=== PATIENT | female | born 1980 | race Caucasian/White ===

== ENCOUNTER 2019-10-08 11:57 | Inpatient (IN) | payer OTHER ==
[~2019-10-08] VITALS: Ht 165.1 cm; Wt 83.2 kg
[2019-10-08 14:41] VITALS: BP 110/71
[2019-10-08] MEDS ORDERED: OXYTOCIN 30U/ 0.9% NaCL 500ML 500 ML IV ONE (14:45)
[2019-10-08] MEDS ORDERED: LACTATED RINGERS 1,000 ML IV SCH ×2 (14:45→19:08)
[2019-10-08] MEDS ORDERED: FENTANYL PF 100 MCG/2ML IV PRN (15:00)
[2019-10-08] MEDS ORDERED: TERBUTALINE 1 MG/ML, 1ML SQ PRN (15:00)
[2019-10-08] MEDS ORDERED: CALCIUM CARBONATE 500 MG TAB.CHEW PO PRN (15:00)
[2019-10-08] MEDS ORDERED: ONDANSETRON 2MG/ML, 2ML IVPush PRN ×2 (15:00→19:30)
[2019-10-08] MEDS ORDERED: TERBUTALINE 1 MG/ML, 1ML IVPush PRN (15:00)
[2019-10-08] MEDS ORDERED: FENTANYL PF 100 MCG/2ML IVPush PRN (15:00)
[2019-10-08 15:22] LABS: BASOPHILS # (AUTO) 0.05 x10^3/uL (0-0.1); BASOPHILS % (AUTO) 0 % (0-1); EOSINOPHILS # (AUTO) 0.01 x10^3/uL (0-0.4); EOSINOPHILS % (AUTO) 0 % (1-7); LYMPHOCYTES % (AUTO) 14 % (22-44); MD NO; MEAN CORPUSCULAR HEMOGLOBIN 28.2 pg (27.0-34.8); MEAN CORPUSCULAR HGB CONC 32.9 g/dL (32.4-35.8); MEAN CORPUSCULAR VOLUME 85.6 fL (80-100); MEAN PLATELET VOLUME 9.6 fL (7.4-10.4); MONOCYTES # (AUTO) 0.53 x10^3/uL (0.2-0.8); MONOCYTES % (AUTO) 5 % (2-9); NEUTROPHILS # (AUTO) 8.79 x10^3/uL (1.8-6.8); NEUTROPHILS % (AUTO) 81 % (42-75); PLATELET COUNT 233 x10^3/uL (130-400); RED BLOOD COUNT 4.23 x10^6/uL (3.82-5.3); RED CELL DISTRIBUTION WIDTH 12.7 % (9.6-15.2)
[2019-10-08] MEDS ORDERED: FENTANYL/BUPIV./NS/PF 250 ML EPIDCONT ONE (18:50)
[2019-10-08] MEDS ORDERED: BUPIVACAINE 0.25% ONE (18:50)
[2019-10-08] MEDS ORDERED: LIDOCAINE 1%, 20ML ONE (19:06)
[2019-10-08] MEDS ORDERED: NEWBORN KIT ONE (19:06)
[2019-10-08] MEDS ORDERED: OXYTOCIN 30U/ 0.9% NaCL 500ML 500 ML ONE ×2 (19:06→23:39)
[2019-10-08] MEDS ORDERED: MISOPROSTOL 200 MCG TABLET ONE (19:06)
[2019-10-08] MEDS ORDERED: FENTANYL/BUPIV./NS/PF 250 ML EPIDCONT SCH (19:08)
[2019-10-08] MEDS ORDERED: LACTATED RINGERS 1,000 ML IVBOLUS PRN (19:30)
[2019-10-08] MEDS ORDERED: EPHEDRINE 50 MG/ML, 1ML IVPush PRN (19:30)
[2019-10-08] MEDS ORDERED: NALOXONE 0.4 MG/ML, 1ML IVPush PRN (19:30)
[2019-10-08] MEDS ORDERED: DIPHENHYDRAMINE 50 MG/ML, 1ML IVPush PRN (19:30)
[2019-10-08] MEDS ORDERED: OXYTOCIN 30U/ 0.9% NaCL 500ML 500 ML IV PRN (19:52)
[2019-10-08 19:58] VITALS: BP 107/59
[2019-10-08] MEDS ORDERED: KETOROLAC 30 MG/1 ML ONE (23:18)
[2019-10-08] MEDS ORDERED: KETOROLAC 30 MG/1 ML IM SCH (23:20)
[2019-10-08] MEDS ORDERED: MISOPROSTOL 200 MCG TABLET PR PRN (23:30)
[2019-10-08] MEDS ORDERED: ONDANSETRON 2MG/ML, 2ML IV PRN (23:30)
[2019-10-08] MEDS ORDERED: CARBOPROST TROMETHAMINE 250 MCG/ML, 1ML IM PRN (23:30)
[2019-10-08] MEDS ORDERED: BISACODYL 10 MG SUPP PR PRN (23:30)
[2019-10-08] MEDS ORDERED: OXYcodone IR 5MG TABLET PO PRN (23:30)
[2019-10-08] MEDS ORDERED: SIMETHICONE 80 MG CHEW TAB PO PRN (23:30)
[2019-10-08] MEDS ORDERED: METOCLOPRAMIDE 5 MG/ML, 2ML IV PRN (23:30)
[2019-10-08] MEDS ORDERED: METHYLERGONOVINE 0.2 MG/ML IM PRN (23:30)
[2019-10-08] MEDS ORDERED: GLYCERIN ADULT SUPP PR PRN (23:30)
[2019-10-08] MEDS ORDERED: ACETAMINOPHEN 325 MG TABLET PO PRN (23:30)
[2019-10-08] MEDS ORDERED: OXYcodone/APAP 5/325MG TABLET PO PRN (23:30)
[2019-10-08] MEDS: OXYTOCIN 30U/ 0.9% NaCL 500ML 500 ML IV SCH (23:41)
[2019-10-09] MEDS ORDERED: OXYTOCIN 30U/ 0.9% NaCL 500ML 500 ML ONE (00:18)
[2019-10-09] MEDS ORDERED: METHYLERGONOVINE 0.2 MG/ML IM ONE (00:18)
[2019-10-09] MEDS: OXYTOCIN 30U/ 0.9% NaCL 500ML 500 ML IV SCH (00:39)
[2019-10-09] MEDS ORDERED: CARBOPROST TROMETHAMINE 250 MCG/ML, 1ML IM ONE ×2 (00:57→11:07)
[2019-10-09] MEDS ORDERED: DIPHENOXYLATE/ATROPINE TABLET PO PRN (01:00)
[2019-10-09] MEDS ORDERED: ONDANSETRON 2MG/ML, 2ML ONE (01:18)
[2019-10-09 01:42] LABS: BASOPHILS # (AUTO) 0.02 x10^3/uL (0-0.1); BASOPHILS % (AUTO) 0 % (0-1); EOSINOPHILS # (AUTO) 0.01 x10^3/uL (0-0.4); EOSINOPHILS % (AUTO) 0 % (1-7); LYMPHOCYTES # (AUTO) 1.13 x10^3/uL (1-3.4); LYMPHOCYTES % (AUTO) 10 % (22-44); MD NO; MEAN CORPUSCULAR HEMOGLOBIN 28.3 pg (27.0-34.8); MEAN CORPUSCULAR HGB CONC 33.3 g/dL (32.4-35.8); MEAN PLATELET VOLUME 9.5 fL (7.4-10.4); MONOCYTES # (AUTO) 0.14 x10^3/uL (0.2-0.8); MONOCYTES % (AUTO) 1 % (2-9); NEUTROPHILS # (AUTO) 10.38 x10^3/uL (1.8-6.8); NEUTROPHILS % (AUTO) 89 % (42-75); PLATELET COUNT 200 x10^3/uL (130-400); RED BLOOD COUNT 4.11 x10^6/uL (3.82-5.3); RED CELL DISTRIBUTION WIDTH 12.5 % (9.6-15.2)
[2019-10-09 01:47] LABS: INTERNATIONAL NORMALIZED RATIO 0.9 (0.93-1.1); PROTHROMBIN TIME 9.5 Seconds (9.6-11.5)
[2019-10-09 03:25] VITALS: BP 111/68
[2019-10-09 05:28] VITALS: BP 110/60
[2019-10-09 07:05] VITALS: BP 114/65
[2019-10-09 08:21] LABS: MEAN CORPUSCULAR HEMOGLOBIN 28.4 pg (27.0-34.8); MEAN CORPUSCULAR VOLUME 86.2 fL (80-100); MEAN PLATELET VOLUME 9.4 fL (7.4-10.4); PLATELET COUNT 208 x10^3/uL (130-400); RED BLOOD COUNT 3.72 x10^6/uL (3.82-5.3); RED CELL DISTRIBUTION WIDTH 12.5 % (9.6-15.2)
[2019-10-09] MEDS: IBUPROFEN 600 MG TABLET PO PRN ×3 (08:35→22:53)
[2019-10-09] MEDS: PRENATAL VIT/IRON/FA 1 EACH TABLET PO SCH (08:35)
[2019-10-09] MEDS: DOCUSATE 100 MG CAPSULE PO PRN ×2 (08:35→22:53)
[2019-10-09 08:48] LABS: BASOPHILS # (AUTO) 0.01 x10^3/uL (0-0.1); BASOPHILS % (AUTO) 0 % (0-1); EOSINOPHILS % (AUTO) 0 % (1-7); LYMPHOCYTES # (AUTO) 0.67 x10^3/uL (1-3.4); LYMPHOCYTES % (AUTO) 5 % (22-44); MD SCAN; MONOCYTES % (AUTO) 4 % (2-9); NEUTROPHILS # (AUTO) 13.17 x10^3/uL (1.8-6.8); NEUTROPHILS % (AUTO) 91 % (42-75)
[2019-10-09 12:31] VITALS: BP 102/67
[2019-10-09 16:13] VITALS: BP 93/61
[2019-10-09 20:20] VITALS: BP 93/58
[2019-10-10 02:50] VITALS: BP 92/54
[2019-10-10] MEDS: IBUPROFEN 600 MG TABLET PO PRN (06:23)
[2019-10-10] MEDS: DOCUSATE 100 MG CAPSULE PO PRN (07:24)
[2019-10-10] MEDS: PRENATAL VIT/IRON/FA 1 EACH TABLET PO SCH (07:24)
[2019-10-10 07:30] VITALS: BP 93/64
[2019-10-10] MEDS ORDERED: IBUP-1222 PO (08:55)
[2019-10-10] MEDS ORDERED: NITR100C56 PO (08:55)
== END 2019-10-10 12:15 | disposition home or self-care (01) | DRG 806 ==
LOC: LDIP 14:28 → 2NE 10-09 02:17 → 2NW 10-09 06:00
PROVIDERS: ADMIT Student in an Organized Health Care Education/Training Program; ATTEND Student in an Organized Health Care Education/Training Program
PROC: 0KQM0ZZ Repair Perineum Muscle, Open Approach (ICD-10-PCS; principal; 2019-10-08)
PROC: 10E0XZZ Delivery of Products of Conception, External Approach (ICD-10-PCS; 2019-10-08)
PROC: 0UQMXZZ Repair Vulva, External Approach (ICD-10-PCS; 2019-10-08)
PROC: 10907ZC Drainage of Amniotic Fluid, Therapeutic from Products of Conception, Via Natural or Artificial Opening (ICD-10-PCS; 2019-10-08)
PROC: 3E0R3BZ Introduction of Anesthetic Agent into Spinal Canal, Percutaneous Approach (ICD-10-PCS; 2019-10-08)
PROC: 00HU33Z Insertion of Infusion Device into Spinal Canal, Percutaneous Approach (ICD-10-PCS; 2019-10-08)
DX: O24.420 Gestational diabetes mellitus in childbirth, diet controlled (principal); O72.1 Other immediate postpartum hemorrhage; Z37.0 Single live birth; O70.1 Second degree perineal laceration during delivery; O71.82 Other specified trauma to perineum and vulva; Z90.89 Acquired absence of other organs; Z3A.39 39 weeks gestation of pregnancy
CPT/HCPCS: 36415; 85025; 85384; 85610; 85730; 86592; 86850; 86900; G0378; J1885; J2405; J3490; J2210; J2590; J3010; J7120